=== PATIENT | male | born 1995 | race Caucasian/White ===

== ENCOUNTER 2017-03-20 12:22 | Emergency (ER) ==
[2017-03-20 12:30] VITALS: BP 106/67; TEMP 98.6; BMI 19.6
[2017-03-20 13:43] LABS: FLU INTERNAL QC INTERNAL QC VALID; RAPID FLU A NEGATIVE (NEGATIVE); RAPID FLU B NEGATIVE (NEGATIVE)
--- NOTE | 2017-03-20 14:09 | ED.PDOC ---
General ED Provider: Dr. ZACARIAS NOGUERA JR Chief Complaint: Sore Throat Stated Complaint: I think we have strep- sore throat fever Time Seen by Physician: 12:50 Mode of Arrival: Walk-In Information Source: Patient Exam Limitations: No limitations Nursing and Triage Documentation Reviewed and Agree: No Review of Systems - Review Of Systems Constitutional: Reports: Fever, Malaise Eyes: Reports: No symptoms Ears, Nose, Mouth, Throat: Reports: Throat pain Respiratory: Reports: No symptoms Cardiac: Reports: No symptoms GI: Reports: No symptoms : Reports: No symptoms Musculoskeletal: Reports: No symptoms Skin: Reports: No symptoms Neurological: Reports: No symptoms Endocrine: Reports: No symptoms Hematologic/Lymphatic: Reports: No symptoms All Other Systems: Other Past Medical History - Past Medical History Previously Healthy: Yes Endocrine: Reports: None Cardiovascular: Reports: None Respiratory: Reports: None Hematological: Reports: None Gastrointestinal: Reports: None Genitourinary: Reports: None Neuro/Psych: Reports: None Musculoskeletal: Reports: None Cancer: Reports: None - Surgical History General Surgical History: Reports: Unknown - Family History Family History: Reports: Unknown - Social History Smoking Status: Former smoker Smoking Cessation Counseling Time: > 3 min - 10 min Hx Substance Use: No Alcohol Screening: None Physical Exam - Physical Exam Appearance: Well-appearing Eyes: CARL, EOMI, Conjunctiva clear ENT: Ears normal, Nose normal, Oropharynx normal Neck: Supple Respiratory: Airway patent, Breath sounds clear, Breath sounds equal, Respirations nonlabored Cardiovascular: RRR, Pulses normal, No rub, No murmur GI/: Soft, Nontender, No masses, Bowel sounds normal, No Organomegaly Musculoskeletal: Normal strength, ROM intact, No edema, No calf tenderness Skin: Warm, Dry, Normal color Neurological: Sensation intact, Motor intact, Reflexes intact, Cranial nerves intact, Alert, Oriented Psychiatric: Affect appropriate, Mood appropriate Critical Care Note - Critical Care Note Total Time (mins): 0 Course - Course Orders, Labs, Meds: Lab Review 03/20/17 13:05 Influenza A (Rapid) Negative Influenza B (Rapid) Negative Orders Category Date Time Status MOLECULAR GROUP A STREP Stat LAB 03/20/17 13:05 Results RAPID FLU A/B Stat LAB 03/20/17 13:05 Completed STREP SCREEN Stat LAB 03/20/17 13:05 Results Vital Signs: Temp Pulse Resp BP Pulse Ox 03/20/17 12:27 98.6 F 77 16 106/67 97 Departure - Departure Time of Disposition: 14:08 Disposition: HOME SELF-CARE Discharge Problem: URTI (infection of the upper respiratory tract) Instructions: Upper Respiratory Infection (ED) Condition: Good Pt referred to PMD for follow-up: Yes Additional Instructions: confirmatory test for strep is pending if confirmatory test is positive, will need Keflex do not take Keflex unless positive testing may use Motrin for symptoms return if fever over 101.0 Prescriptions: Cephalexin [Keflex] 500 mg PO QID #40 capsule Ibuprofen [Motrin] 600 mg PO QID PRN #30 tablet PRN Reason: PAIN Allergies/Adverse Reactions: Allergies No Known Allergies Allergy (Verified 03/20/17 12:26) Home Medications: Ambulatory Orders Cephalexin [Keflex] 500 mg PO QID #40 capsule 03/20/17 Ibuprofen [Motrin] 600 mg PO QID PRN #30 tablet 03/20/17
== END 2017-03-20 14:23 | disposition home or self-care (01) ==
LOC: ED 12:22
DX: J06.9 Acute upper respiratory infection, unspecified (principal)
CPT/HCPCS: 87651; 87804; 87880; 99283

== ENCOUNTER 2017-11-19 17:50 | Emergency (ER) ==
[2017-11-19 17:54] VITALS: BP 123/70; BMI 18.6
[2017-11-19] MEDS ORDERED: MOTRIN SUSP PO STA (18:47)
--- NOTE | 2017-11-19 19:58 | ED.PDOC ---
General ED Provider: Dr. CASI BEE-ER Chief Complaint: Fever Stated Complaint: ronda had a fever and a cough Time Seen by Physician: 19:56 Mode of Arrival: Walk-In Information Source: Patient Exam Limitations: No limitations [facility] Nursing and Triage Documentation Reviewed and Agree: Yes Reviewed sepsis parameters & appropriate labs ordered?: Yes System Inflammatory Response Syndrome: Not Applicable Sepsis Protocol: For patient's 13 years and over: Temp is 96.8 and below OR 101 and greater Pulse >90 BPM Resp >20/minute Acutely Altered Mental Status Are patient's symptoms suggestive of a new infection, such as: -Pneumonia -Skin, Soft Tissue -Endocarditis -UTI -Bone, Joint Infection -Implantable Device -Acute Abdominal Infection -Wound Infection -Meningitis -Blood Stream Catheter Infection -Unknown Respiratory Complaint Exam - Respiratory Complaint/Exam Onset/Duration: 3 days Symptoms Are: Still present Timing: Intermittent Initial Severity: Mild Current Severity: Moderate Location: Chest Character: Reports: Non-productive cough Aggravating: Reports: URI Associated Signs and Symptoms: Reports: Fever, Chills, URI, Nasal congestion. Denies: Rapid breathing, Dyspnea, Chest pain, Pleuritic chest pain, Wheezing, Hemoptysis, Dizziness, Calf pain, Calf swelling, Edema, Hoarseness, Sinus discomfort, Vomiting, Sore throat, Weight loss, Decreased oral intake, Increased thirst, Increased appetite, Increased urination History of Healthcare-Acquired Pneumonia: No Home Oxygen Use: No Recent Stress Test: No Recent Echo/LV Function: No Current Antibiotic Use: No Current Asthma Medication Use: No Respiratory Distress: None Inadequate Respiratory Effort: No Dysphagia Present: No Stridor Present: No JVD Present: No Accessory Muscle Use: No Retractions: Not Present Diminished Breath Sounds: No Sinus Tenderness: None Grunting Respirations: No Kussmaul Respirations: No Differential Diagnoses: URI Review of Systems - Review Of Systems Constitutional: Reports: Chills, Fever Eyes: Reports: No symptoms Ears, Nose, Mouth, Throat: Reports: Nose discharge Respiratory: Reports: Cough Cardiac: Reports: No symptoms GI: Reports: No symptoms : Reports: No symptoms Musculoskeletal: Reports: No symptoms Skin: Reports: No symptoms Neurological: Reports: No symptoms Endocrine: Reports: No symptoms Hematologic/Lymphatic: Reports: No symptoms All Other Systems: Reviewed and Negative Past Medical History - Past Medical History Previously Healthy: Yes Endocrine: Reports: None Cardiovascular: Reports: None Respiratory: Reports: None Hematological: Reports: None Gastrointestinal: Reports: None Genitourinary: Reports: None Neuro/Psych: Reports: None Musculoskeletal: Reports: None Cancer: Reports: None - Surgical History General Surgical History: Reports: Unknown - Family History Family History: Reports: Unknown - Social History Smoking Status: Former smoker Hx Substance Use: No Alcohol Screening: None Lives: With family Physical Exam - Physical Exam Appearance: Well-appearing, No pain distress, Well-nourished Eyes: CARL ENT: Ears normal, Nose normal, Oropharynx normal Neck: Supple Respiratory: Airway patent, Breath sounds clear, Breath sounds equal, Respirations nonlabored, Rhonchi Cardiovascular: RRR, Pulses normal, No rub, No murmur GI/: Soft, Nontender, No masses, Bowel sounds normal, No Organomegaly Musculoskeletal: Normal strength, ROM intact, No edema, No calf tenderness Skin: Warm, Dry, Normal color Neurological: Sensation intact Psychiatric: Affect appropriate, Mood appropriate Interpretation - Radiology Interpretation Radiology Interpretation By: ED Physician Radiology Results: Negative Exam Interpreted: CXR Re-Evaluation - Re-Evaluation Time of Re-Evaluation: 19:58 Status: Improved ([id number]) Vital Signs Stable: Yes Pain Level: 0 Appearance: NAD Lungs: Clear Skin: Warm and Dry Neuro: Alert and Oriented X3 CV: RRR Critical Care Note - Critical Care Note Total Time (mins): 0 Course - Course Hematology/Chemistry: 11/19/17 19:10 11/19/17 19:10 Orders, Labs, Meds: Lab Review 11/19/17 11/19/17 11/19/17 19:10 19:10 19:10 WBC 19.88 H RBC 4.79 Hgb 14.8 Hct 41.4 L MCV 86.4 MCH 30.9 MCHC 35.7 H RDW Coeff of Ron 12.2 Plt Count 359 Immature Gran % (Auto) 0.6 Neut % (Auto) 85.5 Lymph % (Auto) 4.8 L [place] % (Auto) 8.6 Eos % (Auto) 0.2 Baso % (Auto) 0.3 Immature Gran # (Auto) 0.1 Neut # 17.0 H Lymph # 1.0 [place] # 1.7 Eos # 0.0 Baso # 0.1 Sodium 135 L Potassium 3.9 Chloride 104 Carbon Dioxide 23 Anion Gap 11.9 BUN 8 Creatinine 0.87 Estimated GFR (MDRD) 111.00 BUN/Creatinine Ratio 9.19 Glucose 92 Lactic Acid 10.3 Calcium 9.2 Total Bilirubin 0.9 AST 16 ALT 13 Alkaline Phosphatase 65 Total Protein 7.6 Albumin 3.5 Globulin 4.1 Albumin/Globulin Ratio 0.85 Procalcitonin Influenza A (Rapid) Influenza B (Rapid) 11/19/17 11/19/17 19:10 19:25 WBC RBC Hgb Hct MCV MCH MCHC RDW Coeff of Ron Plt Count Immature Gran % (Auto) Neut % (Auto) Lymph % (Auto) [place] % (Auto) Eos % (Auto) Baso % (Auto) Immature Gran # (Auto) Neut # Lymph # [place] # Eos # Baso # Sodium Potassium Chloride Carbon Dioxide Anion Gap BUN Creatinine Estimated GFR (MDRD) BUN/Creatinine Ratio Glucose Lactic Acid Calcium Total Bilirubin AST ALT Alkaline Phosphatase Total Protein Albumin Globulin Albumin/Globulin Ratio Procalcitonin 0.12 Influenza A (Rapid) Negative by naat Influenza B (Rapid) Negative by naat Orders Category Date Time Status BLOOD CULTURE (ED ONLY) Stat LAB 11/19/17 19:10 Received CBC W/ AUTO DIFF Stat LAB 11/19/17 19:10 Completed COMPREHENSIVE METABOLIC PANEL Stat LAB 11/19/17 19:10 Completed LACTIC ACID Stat LAB 11/19/17 19:10 Completed MOLECULAR FLU A/B Stat LAB 11/19/17 19:25 Completed MOLECULAR GROUP A STREP Stat LAB 11/19/17 18:46 Completed PROCALCITONIN Stat LAB 11/19/17 19:10 Completed Ibuprofen Susp [Motrin Susp] MEDS 11/19/17 18:47 Discontinued 800 mg PO ONCE STA CXR [CHEST, 2 VIEWS PA & LAT] Stat RADS 11/19/17 18:49 Taken Medications Discontinued Medications Generic Name Dose Route Start Last Admin Trade Name Freq PRN Reason Stop Dose Admin Ibuprofen 800 mg 11/19/17 18:47 11/19/17 18:57 Motrin Susp PO 11/19/17 18:48 800 mg ONCE STA Administration Vital Signs: Temp Pulse Resp BP Pulse Ox 11/19/17 20:06 99.5 F 11/19/17 17:51 103.2 F H 111 H 20 123/70 95 Departure - Departure Time of Disposition: 19:58 Disposition: HOME SELF-CARE Discharge Problem: URI, acute, Bronchitis Instructions: Acute Bronchitis (ED) Condition: Good Pt referred to PMD for follow-up: Yes Additional Instructions: augmentin 875mg bid x 7 days--tessalon perles 200mg tid prn cough 30--fluids, rest--motrin for temp--rechechk in 48hrs if not better and repeat cbc in a few days wtih pcp to make sure white count comes down Allergies/Adverse Reactions: Allergies No Known Allergies Allergy (Verified 11/19/17 17:56) Home Medications: Ambulatory Orders 1 [No Reported Medications] 11/19/17 Disposition Discussed With: Patient, Family
[2017-11-19 20:06] VITALS: TEMP 99.5
--- NOTE | 2017-11-20 07:20 | DI ---
EXAM: Two views of the chest. History: Cough and fever. Findings: Heart size is normal. On the lateral view there is an hazy opacity over the lower hemitho rax. No pleural fluid and no pneumothorax. No acute osseous abnormalities. Impression: Suspect left lower lobe pneumonia.
== END 2017-11-19 20:06 | disposition home or self-care (01) ==
LOC: ED 17:50
DX: J20.9 Acute bronchitis, unspecified (principal)
CPT/HCPCS: 36415; 80053; 83605; 84145; 85025; 87040; 87502; 87651; 99283